=== PATIENT | female | born 1970 | race Caucasian/White ===

== ENCOUNTER 2018-08-29 14:51 | Outpatient (CLI) | payer OTHER ==
--- NOTE | 2018-08-29 16:42 | MRI ---
MRI OF THE RIGHT SHOULDER WITHOUT CONTRAST: 08/29/18 INDICATION: Right shoulder pain for two years from repetitive movement at work. COMPARISON: None. FINDINGS: There is mild AC joint osteoarthrosis. No muscular atrophy is evident. There is mild tendinosis of th e supraspinatus. No full thickness rotator cuff tear is evident. Biceps tendon is located. Biceps anc hor complex superior glenoid labrum is intact. Glenohumeral articular surface is normal appearing. Th e inferior glenohumeral ligamentous complex appears intact. No abnormal fluid is seen in the subacrom ial subdeltoid bursa. IMPRESSION: 1. Mild supraspinatus tendinosis. 2. Mild AC joint osteoarthrosis. POS: [facility]
== END 2018-08-29 14:52 | disposition home or self-care (01) ==
LOC: SCSMRI 14:51
PROVIDERS: ATTEND Orthopaedic Surgery
DX: M25.511 Pain in right shoulder (principal); M19.011 Primary osteoarthritis, right shoulder; M75.81 Other shoulder lesions, right shoulder